=== PATIENT | male | born 1950 | race Caucasian/White ===

== ENCOUNTER 2024-12-29 07:54 | Day surgery (SDC) | payer OTHER ==
[~2024-12-29] VITALS: Ht 177.8 cm; Wt 109.2 kg
[~2024-12-29 07:54] MED LIST: ALBU3IS; ALBU90OI6 INH; ALKA-SELTZER D1 EACH; ASCO500; Aspir 8181 MG PO; Aspirin EC81 MG; Cialis5 MG PO; Coq-10100 MG; Coq-1030 MG PO; DIPH50; FISH OIL 11600 MG/5; FLONASE ALLERG9.9 ML INH; FLUT.05NI; MONT10T PO; PRAVASTATIN SOD10 MG PO; SILD50TA; Vitamin D2000 UNIT PO; ZYRTEC10 M2 PO; [UNRECOGNIZED DRUG - OTHER]
[2024-12-29] MEDS ORDERED: Lisinopril-Hct1 EAC4 (08:17)
[2024-12-29 10:25] VITALS: BP 101/70
== END 2024-12-29 10:15 | disposition home or self-care (01) ==
LOC: ORSCSDS 07:54
PROVIDERS: Specialist
PROC: 0DBN8ZX Excision of Sigmoid Colon, Via Natural or Artificial Opening Endoscopic, Diagnostic (ICD-10-PCS; principal; 2024-12-29 09:15)
DX: R19.7 Diarrhea, unspecified (principal); Z86.0101 Personal history of adenomatous and serrated colon polyps; D12.5 Benign neoplasm of sigmoid colon; Z80.0 Family history of malignant neoplasm of digestive organs; K64.8 Other hemorrhoids; K57.30 Diverticulosis of large intestine without perforation or abscess without bleeding; Z79.899 Other long term (current) drug therapy
CPT/HCPCS: 88305; J2704; J7120